=== PATIENT | male | born 1995 | race Caucasian/White ===

== ENCOUNTER 2022-12-23 10:21 | Day surgery (SDC) | payer OTHER, SELFPAY ==
[2022-12-22 14:26] VITALS: BMI 30.8
[2022-12-23 10:45] VITALS: BMI 30.1
[2022-12-23] MEDS: LACTATED RINGERS 1,000 ML 42 ML IV (10:54)
[2022-12-23] MEDS: SCOPOLAMINE 1 PATCH TOP (10:55)
[2022-12-23] MEDS: ACETAMINOPHEN 325 MG TABLET 975 MG PO (10:55)
[2022-12-23 11:06] VITALS: BP 119/76; PULSE 91; RESP 18; TEMP 36.4; O2SAT 100
--- NOTE | 2022-12-23 12:46 | P.HP_ITS ---
History of Present Illness History of Present Illness Date Patient Seen: 12/23/22 Time Patient Seen: 12:46 Chief complaint: SDC Narrative: Patient presents in the preoperative holding area for evaluation of left knee pain here for a planned left medial meniscus repair. Has not had any changes in his symptoms since I last saw him on November 19. Denies any distal numbness or tingling. No other complaints at this time. [facility] [place] Medical History (Updated 12/22/22 @ 14:30 by Alice Soto RN) Tear of medial meniscus of left knee HTN (hypertension) Social History household members: spouse Smoking Status: Never smoker Meds Home Medications and Allergies Home Medications Medication Instructions Recorded Confirmed Type lisinopril 20 mg tablet 20 mg PO DAILY 12/22/22 12/23/22 History Allergies Allergy/AdvReac Type Severity Reaction Status Date / Time No Known Drug Allergies Allergy Verified 12/22/22 14:30 Review of Systems Review of Systems ROS: Yes All systems reviewed with the patient and are negative except as otherwise documented Exam Vital Signs (past 8 hours): - 12/23/22 11:06 Temperature 97.6 F Pulse Rate 91 H Respiratory Rate 18 Blood Pressure 119/76 Pulse Oximetry 100 Oxygen Delivery Method Room Air Oxygen Delivery Method Room Air Narrative Exam Narrative: HEENT: Head atraumatic eyes anicteric moist mucous membranes Cardiovascular: Palpable peripheral pulses extremities are warm and well perfused Respiratory: Breathing comfortably on room air Psychiatric: Appropriate mood and affect Neuro: No acute deficits Musculoskeletal: Exam of the left lower extremity demonstrates a positive Mainor's with pain on the medial joint line. Otherwise has full range of motion. Sensation intact to light touch in sural, saphenous, superficial peroneal, deep peroneal and tibial nerve distributions. 2+ dorsalis pedis pulse with brisk capillary refill less than 2 seconds. Assessment & Plan Assessment & Plan narrative: Assessment: 27-year-old male with left medial meniscus tear as seen on MRI Plan: Plan for arthroscopic repair of the medial meniscus. Risks and benefits of surgery were discussed again including the risk of infection, damage to internal structures, bleeding, nerve injury, instability, need for revision surgery, blood clots, anesthesia and . No guarantees were made regarding outcomes. Patient expressed understanding and accepted these risks and wished to go forward with surgery and consent was signed.
[2022-12-23] MEDS: TRANEXAMIC ACID 1,000 MG VIAL 1000 MG INJ (13:15)
[2022-12-23] MEDS: CEFAZOLIN 2 GM/100 ML PREMIX 100 ML IV (13:15)
--- NOTE | 2022-12-23 13:36 | SUR.OPER ---
Supine on padded OR bed, head on pillow, right arm padded and tucked at side, left arm on arm board @ < 90degrees legs uncrossed, safety belt at abdomen, tape over blanket over right lower leg. Left leg with lateral post at thigh, under control of surgeon.
[2022-12-23] MEDS: BUPIVACAINE 0.25% (PF) 30 ML, EPINEPHrine 0.15 MG INJ (13:47)
[2022-12-23 14:00] VITALS: BP 111/74; PULSE 60; RESP 12; TEMP 36.5; O2SAT 96
[2022-12-23 14:05] VITALS: BP 127/77; PULSE 77; RESP 12; O2SAT 100
[2022-12-23 14:10] VITALS: BP 128/71; PULSE 92; RESP 12; O2SAT 100
[2022-12-23] MEDS: HYDROMORPHONE 1 MG INJ IV ×2 (14:11→14:17)
--- NOTE | 2022-12-23 14:13 | P.OP_ITS ---
Operative Date/Time/Diagnoses Date of procedure: 12/23/22 Time of procedure: 14:13 Pre-op diagnosis: Left medial meniscus tear Post-op diagnosis: same Procedure & Clinicians Procedure: Arthroscopic left medial meniscus repair Same procedure as scheduled: Yes Indications: Indications: This is a 27-year-old male who sustained a injury to the left knee resulting in amedial meniscus tear as seen MRI. They have a positive Mainor's and joint line tenderness. Nonoperative management was attempted including ice, anti-inflammatories, activity modifications and therapy. We also discussed potential injections. This was unsuccessful. Due to the mechanical symptoms of popping clicking and pain at the medial joint line we discussed we will forward with surgery. Risks and benefits of surgery were discussed again including the risk of infection, damage to internal structures, bleeding, nerve injury, instability, need for revision surgery, blood clots, anesthesia and . No guarantees were made regarding outcomes. Patient expressed understanding and accepted these risks and wished to go forward with surgery and consent was signed. Surgeon: Eldon Bragg Yes if Unassisted: No Operative Notes Findings: Findings: Patellofemoral compartment-intact cartilage in the trochlea and medial and lateral facet of the patella Lateral gutter: No loose bodies Medial gutter: No loose bodies Medial compartment: Femoral condyle cartilage-intact smooth cartilage, medial tibial plateau-intact cartilage, medial meniscus-vertical tear of the posterolateral horn of the medial meniscus Intercondylar notch: Intact PCL, ACL looked to be in a slightly vertical position and might be partially healed to the PCL but still maintains an attachment to the lateral wall Lateral compartment: Femoral condyle cartilage intact, lateral tibial plateau cartilage, intact, lateral meniscus intact Closure Type: primary Specimen(s): none sent Prosthetic devices, grafts, tissues, transplants, or devices: Implants: Danielle [employer] Nephew fast fix all-inside meniscus suture x 2 Estimated Blood Loss (mL): 5 Tourniquet time (min): 18 Procedure in detail: Procedure: Patient was seen in the preoperative holding area. The left lower extremity was marked with my initials. We again went over the risks and benefits of surgery and they wished to go forward with surgery. They were brought back to the operating room and placed supine on the operating table. IV antibiotics was administered as well as 1 g of TXA in the underwent smooth induction of anesthesia. A nonsterile tourniquet was placed on the upper thigh. The left l ower extremity was then prepped and draped in the standard sterile fashion and again my initials were again noted. A time-out was performed. Procedure was begun with a outflow portal superomedial. Then a anteromedial and anterolateral portal were established outside in. A diagnostic scope was then performed demonstrating the above-noted findings. Thorough debridement of the anterior fat pad which encompassed multiple compartments including the lateral compartment and patellofemoral compartment was completed to allow complete extension. Attention was then turned to the medial meniscus. A vertical tear was noted at the posterior horn. A rasp was used within the wound. Using a skid for insertion 2 separate Danielle and Nephew fast fix sutures were placed in a vertical pattern which allowed for good closure of the meniscus tear. Final images were taken. Instruments were removed and the knee was suctioned dry. 15 cc Marcaine were injected into the joint through the outflow portal. The wounds were closed with 3-0 Monocryl Steri-Strips and 4x4s. It was then wrapped with an Lino bandage. The patient was awoken from anesthesia without any complications and transported back to the postoperative recovery unit. Complications: none Post-operative Condition: stable Disposition: PACU Plan for aftercare: Postoperatively, the patient will be touchdown weight-bearing for 4 weeks. He may start full weight-bearing at 4 weeks. Range of motion 0-90 degrees for the 1st 6 weeks passive, after 6 weeks he can flex past 90? however no weight past 90? until the 12 week bri.
[2022-12-23] MEDS: OXYCODONE IR 5 MG TABLET PO ×2 (14:21→14:52)
[2022-12-23 14:25] VITALS: BP 121/81; PULSE 62; RESP 12; O2SAT 100
[2022-12-23 15:00] VITALS: BP 120/80; PULSE 60; RESP 16; TEMP 36.9; O2SAT 100
== END 2022-12-23 15:23 | disposition home or self-care (01) ==
PROVIDERS: Referring Provider Orthopaedic Surgery; Visit Provider Orthopaedic Surgery
PROC: (CPT 29870; principal; 2022-12-23 12:15)
DX: S83.222A Peripheral tear of medial meniscus, current injury, left knee, initial encounter (principal); I10 Essential (primary) hypertension; X50.1XXA Overexertion from prolonged static or awkward postures, initial encounter
CPT/HCPCS: 29882; J0171; J0690; J1100; J1170; J1885; J2250; J2405; J2704; J3010

== ENCOUNTER → 2023-02-18 08:14 | Outpatient (CLI) | payer OTHER, SELFPAY ==
--- NOTE | 2023-02-18 | DI.MRI.S_ITS ---
PROCEDURE: MR SHOULDER LT W CON INDICATIONS: LEFT SHOULDER PAIN TECHNIQUE: After the administration of 12 mL of dilute intra-articular Gadolinium contrast, oblique coronal T1 and T2 spin echo with fat saturation, oblique sagittal T1 spin echo with and without fat saturation, oblique sagittal T2 fast spin echo with fat saturation, axial T1 spin echo with fat saturation through the shoulder. COMPARISON: None. FINDINGS: Image quality: Limited. Only axial and coronal sequences through the shoulder were obtained. Patient was unable to continue due to claustrophobia. Rotator cuff: There is low-grade articular surface partial-thickness tear involving distal supraspinatus at its insertion on the humeral head. Low to moderate grade bursal surface partial-thickness tear involving supraspinatus near musculotendinous junction is also seen. Distal infraspinatus tendinosis is seen. The subscapularis tendon is intact. No full-thickness rotator cuff tendon rupture. No obvious rotator cuff muscle atrophy. Bones and bursae: No bone marrow contusions or fractures. [id number]-[id number] acromioclavicular joint osteoarthritic changes are seen with joint space narrowing, subchondral sclerosis and downward osteophyte formation depressing the musculotendinous junction of supraspinatus. The acromion demonstrates conventional anatomy, without an os acromiale. Capsule and soft tissues: The labrum and glenohumeral ligaments appear intact. The long head of the biceps tendon demonstrates normal location and morphology. The rotator interval appears normal, without fibrosis. The coracohumeral ligament is of normal thickness. No intra-articular bodies. IMPRESSION: 1. Limited study as above. 2. Low-grade articular surface partial-thickness tear involving distal supraspinatus. Low to moderate grade bursal surface partial thickness tear involving supraspinatus near musculotendinous junction. Distal infraspinatus tendinosis. No full-thickness rotator cuff tendon rupture. 3. Dzdq-pl-efczkhip acromioclavicular joint osteoarthritis. No fracture or dislocation. No gross intra-articular loose bodies. 4. No evidence of focal labral tear. Dictated by: Ronnie Rivera M.D. on 02/18/2023 at 13:01 Approved by: Ronnie Rivera M.D. on 02/18/2023 at 13:04
--- NOTE | 2023-02-18 | DI.RAD.S_ITS ---
PROCEDURE: FL SHOULDER INJECTION MR/CT LT INDICATIONS: LEFT SHOULDER PAIN COMPARISON: [facility], MR, MR SHOULDER LT W CON, 02/18/2023, 9:08. TECHNIQUE: The indications, alternatives, benefits, risks, and complications of the procedure were explained to the patient. Written informed consent was obtained and placed in the chart. The shoulder was examined fluoroscopically and a site for needle placement chosen for entry into the glenohumeral joint from an anterior approach. The skin was prepped and draped in a sterile fashion, and 1% lidocaine infiltrated from skin down to joint capsule. A spinal needle was inserted into the glenohumeral joint, and a small amount of iodinated contrast media injected to confirm intra-articular placement of the needle tip. This was followed by approximately 12 mL dilute solution of a gadolinium containing MR contrast agent. The needle was removed and a dressing was applied. The patient was given postprocedural instructions and sent to the MR suite for MR imaging. FINDINGS: A single fluoroscopic spot image demonstrates intra-articular location of injected iodinated contrast. IMPRESSION: Successful fluoroscopically guided administration of dilute Gadolinium solution into the shoulder joint for MR arthrogram. Dictated by: Shawn Thomas M.D. on 02/18/2023 at 12:11 Approved by: Shawn Tohmas M.D. on 02/18/2023 at 12:12
[2023-02-18] MEDS: SODIUM CHLORIDE 0.9 % 20 ML VIAL IV (09:10)
[2023-02-18] MEDS: LIDOCAINE 1% 20 ML INJ (09:10)
== END ==
PROVIDERS: Referring Provider Orthopaedic Surgery; Visit Provider Orthopaedic Surgery
DX: M19.012 Primary osteoarthritis, left shoulder (principal); M75.112 Incomplete rotator cuff tear or rupture of left shoulder, not specified as traumatic
CPT/HCPCS: 23350; 73222

== ENCOUNTER 2023-05-27 13:08 | Day surgery (SDC) | payer OTHER, SELFPAY ==
[2023-05-25 14:21] VITALS: BMI 29.2
[2023-05-27] VITALS (7 sets, daily range): BP systolic 132–144; BP diastolic 70–87; PULSE 55–88; RESP 15–16; TEMP 36.3–36.6; O2SAT 96–98; BMI 29.2
[2023-05-27] MEDS: LACTATED RINGERS 1,000 ML 42 ML IV (14:10)
[2023-05-27] MEDS: ACETAMINOPHEN 325 MG TABLET 975 MG PO (14:14)
[2023-05-27] MEDS: SCOPOLAMINE 1 PATCH TOP (14:25)
--- NOTE | 2023-05-27 14:32 | PM.HP.1 ---
History of Present Illness History of Present Illness Date Patient Seen: 05/27/23 Time Patient Seen: 14:33 Chief complaint: SDC Narrative: This is a 27-year-old male here for distal clavicle excision distal clavicle osteolysis have seen him for several months and symptoms have not improved. Currently denies any distal numbness or tingling other complaints at time. REPLACED BY [facility] Medical History (Updated 12/22/22 @ 14:30 by Alice Soto RN) Tear of medial meniscus of left knee HTN (hypertension) Surgical History (Updated 05/25/23 @ 14:25 by Alice Soto RN) Hx of arthroscopy of left knee (12/23/22) Social History household members: spouse Smoking Status: Never smoker alcohol intake: current Meds Home Medications and Allergies Allergies Allergy/AdvReac Type Severity Reaction Status Date / Time No Known Drug Allergies Allergy Verified 05/27/23 13:33 Review of Systems Review of Systems ROS: Yes All systems reviewed with the patient and are negative except as otherwise documented Exam Vital Signs (past 8 hours): - 05/27/23 13:51 Temperature 97.8 F Pulse Rate 88 Respiratory Rate 16 Blood Pressure 137/70 Pulse Oximetry 98 Oxygen Delivery Method Room Air Oxygen Delivery Method Room Air Narrative Exam Narrative: HEENT: Head atraumatic eyes anicteric moist mucous membranes Cardiovascular: Palpable peripheral pulses extremities are warm and well perfused Respiratory: Breathing comfortably on room air Psychiatric: Appropriate mood and affect Neuro: No acute deficits Musculoskeletal: Exam of left upper extremity demonstrates pain to palpation over the AC joint. Otherwise has full range of motion. Sensation intact to light touch in median, radial, ulnar, axillary nerve distributions. 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 Patient elects to go with open distal clavicle excision. Risks and benefits of surgery were discussed again including the risk of infection, damage to internal structures, bleeding, nerve injury, instability, need for revision surgery, blood clots, anesthesia and . No guarantees were made regarding outcomes. Patient expressed understanding and accepted these risks and wished to go forward with surgery and consent was signed. His left upper extremity was marked with my initials.
--- NOTE | 2023-05-27 14:46 | SUR.OPER ---
Beach chair with BOBBI shoulder positioner. Lower body on padded OR bed. Head in foam padded head cradle, secured with straps. Non-operative arm secured <90 degrees abduction. Pillow under knees. Safety belt at thigh. Cloth tape over blanket over lower legs.
[2023-05-27] MEDS: CEFAZOLIN 2 GM/100 ML PREMIX 100 ML IV (15:12)
[2023-05-27] MEDS: BUPIVACAINE 0.25% (PF) 30 ML, EPINEPHrine 0.15 MG INJ (15:28)
--- NOTE | 2023-05-27 17:43 | PM.OP.1 ---
Operative Date/Time/Diagnoses Date of procedure: 05/27/23 Time of procedure: 17:43 Pre-op diagnosis: Left distal clavicle osteolysis Post-op diagnosis: same Procedure & Clinicians Procedure: Left distal clavicle excision (open) Same procedure as scheduled: Yes Indications: This is a 27-year-old male with left distal clavicle osteolysis we previously had discussed performing a distal clavicle excision for pain relief. All questions were previously answered fully to his satisfaction and he wished to go forward with surgery. Surgeon: Eldon Cruz Top Collar Baster: Laura Oden Anesthesia Type: General Operative Notes Findings: See operative note Closure Type: primary Specimen(s): none sent Prosthetic devices, grafts, tissues, transplants, or devices: None Estimated Blood Loss (mL): 10 Procedure in detail: Patient was met in the preoperative holding area. His left shoulder was examined and marked with my initials. We again went over risks and benefits and he wished go forward with surgery. He was given an interscalene block by anesthesia. Patient was taken back to the operating room and placed supine on the operating table and underwent smooth induction of anesthesia. He was then placed into a semi beach chair position. The left upper extremity was prepped and draped in the standard sterile fashion and he was given IV antibiotics. A time-out was performed and appropriate drying time was observed. My initials were again confirmed on the left upper extremity. I began with a 3 cm incision over the distal clavicle encompassing the acromioclavicular joint. Incision was taken down to the deltoid muscle. This was then carefully elevated off of the distal clavicle anteriorly. Posterior the trapezius was lightly elevated off. Hohmann retractors were placed around the clavicle and a measuring tape was used to measure 1 cm from the distal clavicle. A 10 mm oscillating saw was used to excise the distal clavicle. The edge was then smoothed. All bleeders were cauterized. The deltoid was then closed to the trapezius fascia and a layered closure was performed with 2-0 Vicryl 3-0 Monocryl and Dermabond. The wound was dressed with an Aquacel dressing. He was woken and taken to PACU. Complications: none Post-operative Condition: stable Disposition: PACU Plan for aftercare: Sling for comfort only for the 1st 2 weeks. Weight to work on range motion until 2 weeks after the has healed Then gentle range of motion as tolerated. No heavy lifting until the three-month bri.
== END 2023-05-27 16:54 | disposition home or self-care (01) ==
PROVIDERS: Referring Provider Orthopaedic Surgery; Visit Provider Orthopaedic Surgery
PROC: (CPT 23120; principal; 2023-05-27 14:45)
DX: M19.012 Primary osteoarthritis, left shoulder (principal); M25.812 Other specified joint disorders, left shoulder; G89.18 Other acute postprocedural pain
CPT/HCPCS: 23120; 64415; J0171; J0330; J0690; J1100; J2250; J2405; J2704; J3010

== ENCOUNTER 2024-09-13 18:12 | Emergency (ER) | payer OTHER, SELFPAY ==
[2024-09-13] VITALS (8 sets, daily range): BP systolic 109–132; BP diastolic 57–71; PULSE 58–64; RESP 18; TEMP 36.5; O2SAT 97–100; BMI 26.5
--- NOTE | 2024-09-13 18:50 | ED_ITS ---
HPI - Nausea/Vomiting/Diarrhea General Chief complaint: Nausea/Vomiting/Diarrhea Stated complaint: throwing up fever fatigue Time Seen by Provider: 09/13/24 18:21 Source: patient Mode of arrival: Ambulatory History of Present Illness HPI Narrative: Otherwise healthy 28-year-old gentleman with 3-4 days of vomiting low-grade fevers increasing fatigue today with a headache dizzy when he stands up and unable to tolerate even water which is what prompted his ER visit. His had some nausea couple of days ago but did not progress to this stage of vomiting. He is not complaining of diarrhea, chest pain or palpitation Related Data Previous Rx's ?Medication ?Instructions ?Recorded hydrocodone 5 mg-acetaminophen 325 1 tab PO Q6H PRN pa in #20 tabs 05/27/23 mg tablet ibuprofen 600 mg tablet 600 mg PO Q6H PRN pain #60 t abs 05/27/23 ondansetron HCl 4 mg tablet 4 mg PO Q8H PRN nausea and 05/27/23 vomiting #10 tabs ondansetron 4 mg disintegrating 4 mg PO Q8H PRN nausea and 09/13/24 tablet vomiting #14 tabs Allergies Allergy/AdvReac Type Severity Reaction Status Date / Time No Known Drug Allergies Allergy Verified 09/13/24 18:15 Review of Systems Review of Systems Narrative: Pertinent positive and negative findings as per HPI Patient History Medical History (Updated 09/13/24 @ 20:36 by Sheeba Frazier MD) Tear of medial meniscus of left knee HTN (hypertension) Surgical History (Updated 05/25/23 @ 14:25 by Alice Soto RN) Hx of arthroscopy of left knee (12/23/22) Social History household members: spouse Smoking Status: Never smoker alcohol intake: current Smoking Status: Never smoker alcohol intake frequency: holidays/special occasions only Exam Initial Vital Signs Initial Vital Signs: Vital Signs Temperature 97.7 F 09/13/24 18:14 Pulse Rate 61 09/13/24 18:14 Respiratory Rate 18 09/13/24 18:14 Blood Pressure 132/71 09/13/24 18:14 Pulse Oximetry 99 09/13/24 18:14 Oxygen Delivery Method Room Air 09/13/24 18:14 General: Healthy appearing, in no acute distress. Able to give a complete and coherent history. Well-nourished well-developed HEENT: Dry mucous membranes, normal sclera with reactive pupils, Respiratory: Lungs are clear to auscultation, no wheezing no rales no rhonchi. Full and symmetrical air movement Cardiac: Mild tachycardia but otherwise sinus rhythm without murmur Abdomen: Soft, nontender, no rebound or guarding, no flank pain Skin: Warm and dry, Neurologic: Grossly neurologically intact with no obvious asymmetries or abnormalities Extremities: No trauma, no lower extremity edema Psych: Cooperative, appropriate insight and affect Course Orders Ordered: ED Orders 09/13/24 19:04 Complete Blood Count AUTO DIFF Stat Comprehensive Metabolic Panel Stat Magnesium Stat Discontinued Medications Sodium Chloride (Normal Saline 0.9%) 1,000 mls @ 1,000 mls/hr IV BOLUS ONE Stop: 09/13/24 19:29 Last Infusion: 09/13/24 20:04 Dose: Infused Documented By: Admin: 09/13/24 19:14 Dose: 1,000 mls/hr Documented By: PAOLO Sodium Chloride (Normal Saline 0.9%) 1,000 mls @ 1,000 mls/hr IV BOLUS ONE Stop: 09/13/24 19:34 Last Infusion: 09/13/24 21:01 Dose: Infused Documented By: Admin: 09/13/24 20:06 Dose: 1,000 mls/hr Documented By: PAOLO Metoclopramide HCl (Metoclopramide 10 Mg/2 Ml Inj) 10 mg IV NOW ONE Stop: 09/13/24 20:33 Last Admin: 09/13/24 20:43 Dose: 10 mg Documented By: PAOLO Ondansetron HCl (Ondansetron 4 Mg/2 Ml Inj) 4 mg IV NOW ONE Stop: 09/13/24 18:31 Last Admin: 09/13/24 19:14 Dose: 4 mg Documented By: PAOLO Ondansetron HCl (Ondansetron 4 Mg Odt Prepack) 1 bottle MISC DIRECTED ONE Stop: 09/13/24 20:33 Last Admin: 09/13/24 20:44 Dose: 1 bottle Documented By: PAOLO Vital Signs Vital signs: Vital Signs - 8 hr 09/13/24 18:14 09/13/24 19:16 09/13/24 19:17 Temperature 97.7 F Pulse Rate 61 Respiratory Rate 18 Blood Pressure 132/71 115/64 Pulse Oximetry 99 97 Oxygen Delivery Method Room Air 09/13/24 19:17 09/13/24 19:30 09/13/24 19:30 Temperature Pulse Rate 61 64 Respiratory Rate Blood Pressure 114/59 L Pulse Oximetry 97 100 Oxygen Delivery Method Room Air 09/13/24 19:51 09/13/24 19:51 09/13/24 20:00 Temperature Pulse Rate 62 61 Respiratory Rate Blood Pressure 117/57 L Pulse Oximetry 98 99 Oxygen Delivery Method 09/13/24 20:00 09/13/24 20:30 09/13/24 20:30 Temperature Pulse Rate 58 L Respiratory Rate Blood Pressure 116/59 L 109/57 L Pulse Oximetry 97 Oxygen Delivery Method 09/13/24 21:00 09/13/24 21:00 Temperature Pulse Rate 60 Respiratory Rate Blood Pressure 115/58 L Pulse Oximetry 97 Oxygen Delivery Method MDM - Nausea/Vomiting/Diarrhea Lab Data 09/13/24 19:04 09/13/24 19:04 Labs: Lab Results 09/13/24 Range/Units 19:04 WBC 6.7 (4.5-11.0) X10^3/uL RBC 4.72 (4.5-5.9) X10^6/uL Hgb 15.2 (13.5-17.5) g/dL Hct 44.1 (41-53) % MCV 93.3 (80-100) fL MCH 32.1 (26-34) PG MCHC 34.4 (30-36) % RDW 13.1 (11.6-14.8) % Plt Count 189 (150-400) X10^3/uL Neut % (Auto) 55.1 (50-75) % Lymph % (Auto) 35.0 (25-40) % [place] % (Auto) 5.7 (3-14) % Eos % (Auto) 3.5 (2-4) % Baso % (Auto) 0.7 (0-2) % Neut # (Auto) 3700 (1545-4385) /uL Lymph # (Auto) 2300 (0913-2949) /uL [place] # (Auto) 400 (0-900) /uL Eos # (Auto) 200 (0-450) /uL Baso # (Auto) 0 (0-100) /uL Sodium 137 (137-145) mmol/L Potassium 3.7 (3.4-5.1) mmol/L Chloride 101 (98-107) mmol/L Carbon Dioxide 28 (22-32) mmol/L BUN 21 H (9-20) mg/dL Creatinine 1.19 (0.66-1.25) mg/dL Estimated GFR > 60 (>60) mL/min BUN/Creatinine Ratio 17.6 (6-22) Glucose 89 (70-99) mg/dL Calcium 8.9 (8.4-10.2) mg/dL Magnesium 2.0 (1.6-2.3) mg/dL Total Bilirubin 0.7 (0.2-1.3) mg/dL AST 39 (17-59) IU/L ALT 38 (<50) IU/L Alkaline Phosphatase 60 (38-126) U/L Total Protein 7.1 (6.3-8.2) g/dL Albumin 4.7 (3.5-5.0) g/dL Globulin 2.4 (1.7-4.1) g/dL Albumin/Globulin Ratio 2.0 (1.0-2.8) Urine Dip Bedside Urine Glucose Negative Bedside Urine Bilirubin - Negative Bedside Urine Ketone - Negative Urine Specific [place] 1.005 Bedside Urine Occult Blood - Negative Bedside Urine pH 6.5 Bedside Urine Protein - Negative Bedside Urine Urobilinogen - Negative Bedside Urine Nitrite - Negative Bedside Urine Leukocytes - Negative Esterase MDM Narrative Medical decision making narrative: Otherwise healthy 28-year-old gentleman with nausea and vomiting no diarrhea for the past 3-4 days. Lab work including a CBC and chemistries are unremarkable. Is currently afebrile. No evidence of acute surgical abdomen on physical exam. He has voided spontaneously after a L of fluid, still feeling slightly nauseated after the 1 L of fluid and Zofran. He is given a 2 L and IV Reglan. Feeling better, able to keep some sips of Gatorade down. At this point there is no indication for additional workup or hospitalization and he will be discharged. I have given him Zofran and a Zofran prescription to pick up attendant if he needs it tomorrow. A work note, reasons to return to the emergency department and all questions were answered. Discharge Plan Departure Patient Disposition: Home Clinical Impression: Acute dehydration Nausea & vomiting Qualifiers: Vomiting type: unspecified Qualified Code(s): R11.2 - Nausea with vomiting, unspecified Instructions: DI for Vomiting -- Adult Activity Restrictions/Additional Instructions: Thank you for coming in today I suspect you have a mild virus that is causing the nausea and vomiting. I am not finding signs of bacterial infection, your exam does not suggest any type of blockage or infection in your stomach or any reason that you might need surgery or hospitalization In the emergency department you were given a total of 2 L of IV fluid. I gave you both IV ondansetron as well as IV Reglan. Both of these are nausea medications. I have given you some oral ondansetron to use if you continue to have nausea over the next couple of days and a prescription was sent to [facility] in [place] you continue to have nausea. If you find that you are getting worse or develop any new symptoms, please feel free to return to the emergency department for further evaluation. Prescriptions: New ondansetron 4 mg tablet,disintegrating 4 mg PO Q8H PRN (Reason: nausea and vomiting) Qty: 14 0RF No Action hydrocodone-acetaminophen 5-325 mg tablet 1 tab PO Q6H PRN (Reason: pain) Qty: 20 0RF ondansetron HCl 4 mg tablet 4 mg PO Q8H PRN (Reason: nausea and vomiting) Qty: 10 0RF ibuprofen 600 mg tablet 600 mg PO Q6H PRN (Reason: pain) Qty: 60 0RF Referrals: ProviderCamille [Primary Care Provider, Family Practice] Stand Alone Forms: Patient Portal/API, Work Release Note
[2024-09-13 19:11] LABS: Add Manual Diff / Slide Review NO; Hematocrit 44.1 % (41-53); Hemoglobin 15.2 g/dL (13.5-17.5); Lymphocytes Absolute Auto 2300 /uL (1100-4500); Mean Corpuscular HGB Conc 34.4 % (30-36); Mean Corpuscular Hemoglobin 32.1 PG (26-34); Mean Corpuscular Volume 93.3 fL (80-100); Platelet Count 189 X10^3/uL (150-400)
[2024-09-13] MEDS: ONDANSETRON 4 MG/2 ML INJ IV (19:14)
[2024-09-13] MEDS: SODIUM CHLORIDE 0.9% 1,000 ML 1000 ML IV ×2 (19:14→20:06)
[2024-09-13 19:22] LABS: Alanine Aminotransferase 38 IU/L (<50); Albumin 4.7 g/dL (3.5-5.0); Albumin Globulin Ratio 2.0 (1.0-2.8); Alkaline Phosphatase 60 U/L (38-126); Blood Urea Nitrogen 21 mg/dL (9-20); Calcium 8.9 mg/dL (8.4-10.2); Carbon Dioxide 28 mmol/L (22-32); Chloride 101 mmol/L (98-107); Estimated Glomerular Filt Rate > 60 mL/min (>60); Globulin 2.4 g/dL (1.7-4.1); Glucose 89 mg/dL (70-99); HEMOLYSIS 27 (0-50); Magnesium 2.0 mg/dL (1.6-2.3); Potassium 3.7 mmol/L (3.4-5.1); Sodium 137 mmol/L (137-145); Total Protein 7.1 g/dL (6.3-8.2)
[2024-09-13] MEDS: METOCLOPRAMIDE 10 MG/2 ML INJ IV (20:43)
[2024-09-13] MEDS: ONDANSETRON 4 MG ODT PREPACK 1 BOTTLE MISC (20:44)
== END 2024-09-13 21:08 | disposition home or self-care (01) ==
PROVIDERS: Emergency Provider Emergency Medicine
DX: E86.0 Dehydration (principal); R11.2 Nausea with vomiting, unspecified; R42 Dizziness and giddiness; R51.9 Headache, unspecified
CPT/HCPCS: 36415; 80053; 81003; 83735; 85025; 96361; 96374; 96375; 99284; J2405; J2765